=== PATIENT | female | born 1945 | race Caucasian/White ===

== ENCOUNTER 2017-11-12 09:22 | Emergency (ER) | payer MEDICARE, OTHER ==
[~2017-11-12] VITALS: Ht 157.5 cm; Wt 90.5 kg
[2017-11-12 09:23] VITALS: BP 151/67; PULSE 71; RESP 16; TEMP 98.6; O2SAT 96
[2017-11-12] MEDS ORDERED: ALPR0.5T3 PO (09:40)
[2017-11-12] MEDS ORDERED: IRBE150T15 PO (09:40)
[2017-11-12] MEDS ORDERED: RABE1TAB PO (09:40)
[2017-11-12] MEDS ORDERED: METO1TAB9 PO (09:40)
[2017-11-12] MEDS ORDERED: EZET10 PO (09:40)
--- NOTE | 2017-11-12 10:48 | PD ---
HPI Chief Complaint: Pain: Acute or Chronic Time Seen by Provider: 10:29 Travel History International Travel<30 days: No Contact w/Intl Traveler<30days: No Traveled to known affect area: No History of Present Illness HPI 72-year-old female complains of right breast pain. Patient states that the pain started this morning. Patient states the pain is sharp pain localized to the right breast. Patient denies any pain radiation. Patient states the pain is worse with deep breathing. Patient denies any coughing congestion fever chills. Patient denies any injury. PFSH Past Medical History Anxiety: Yes High Cholesterol: Yes GERD: Yes Hypertension: Yes Sleep Apnea: Yes (cpap) Influenza Vaccination: Yes Past Surgical History Cholecystectomy: Yes Hysterectomy: Yes (ovaries still in place) Other Surgery: Yes (double bunion) Social History Alcohol Use: No Tobacco Use: No Substance Use: No Allergies-Medications (Allergen,Severity, Reaction): Coded Allergies: amoxicillin (Verified Allergy, Severe, hives, 11/12/17) clavulanic acid (Verified Allergy, Severe, hives, 11/12/17) levofloxacin (Verified Allergy, Mild, rash, 11/12/17) metronidazole (Verified Allergy, Mild, rash, 11/12/17) Reported Meds & Prescriptions Reported Meds & Active Scripts Active Reported Rabeprazole (Rabeprazole Sodium) 20 Mg Tab 20 Mg PO DAILY Metoprolol Succinate ER 24 HR (Metoprolol Succinate) 50 Mg Tab 50 Mg PO DAILY Irbesartan 150 Mg Tab 150 Mg PO DAILY Zetia (Ezetimibe) 10 Mg Tab 10 Mg PO DAILY Alprazolam 0.5 Mg Tab 0.5 Mg PO HS Review of Systems General / Constitutional: No: Fever Eyes: No: Visual changes HENT: No: Headaches Cardiovascular: No: Chest Pain or Discomfort Respiratory: No: Shortness of Breath Gastrointestinal: No: Abdominal Pain Genitourinary: No: Dysuria Musculoskeletal: No: Pain Skin: No Rash Neurologic: No: Weakness Psychiatric: No: Depression Endocrine: No: Polydipsia Hematologic/Lymphatic: No: Easy Bruising Physical Exam Narrative GENERAL: Well-nourished, well-developed patient. SKIN: Focused skin assessment warm/dry. HEAD: Normocephalic. EYES: No scleral icterus. No injection or drainage. NECK: Supple, trachea midline. No JVD or lymphadenopathy. CARDIOVASCULAR: Regular rate and rhythm without murmurs, gallops, or rubs. RESPIRATORY: Breath sounds equal bilaterally. No accessory muscle use. GASTROINTESTINAL: Abdomen soft, non-tender, nondistended. MUSCULOSKELETAL: No cyanosis, or edema. BACK: Nontender without obvious deformity. No CVA tenderness. Examination of the right breast diffuse fibrocystic structure on the right breast with tenderness on palpation. No redness no heat no skin dimpling noted. No discharge from the nipple. No dominant masses noted. No tenderness on palpation chest wall. No crepitus no deformity noted of the chest wall. Data Data Last Documented VS Vital Signs Date Time Temp Pulse Resp B/P (MAP) Pulse Ox O2 Delivery O2 Flow Rate FiO2 11/12/17 09:23 98.6 71 16 151/67 (95) 96 Room Air Orders Orders Chest, Single Ap (11/12/17 10:37) Electrocardiogram (11/12/17 ) Acetamin-Hydrocod 325-5 Mg ([place] 5-325 (11/12/17 13:00) [facility] Medical Decision Making Medical Screen Exam Complete: Yes Emergency Medical Condition: Yes Interpretation(s) Data Last Impressions Chest X-Ray 11/12/17 1037 Signed Impressions: Service Date/Time: Sunday, November 12, 2017 10:42 - CONCLUSION: 1. Mild right lower lung zone airspace disease which may reflect atelectasis. However, pneumonia or aspiration cannot be excluded in the appropriate clinical setting. Reji Cash MD Differential Diagnosis Differential diagnosis including mastitis, mastalgia, chest wall pain, pneumothorax, PE. Narrative Course 72-year-old female right breast pain. The pain started this morning. Diagnosis Primary Impression: Mastalgia Patient Instructions: General Instructions Additional Instructions: Ibuprofen for pain. Follow-up with general surgeon. Return if worse. Med/Other Pt SpecificInfo: Prescription(s) given Scripts Ibuprofen (Ibuprofen) 600 Mg Tab 600 MG PO TID for Pain, #30 TAB 0 Refills Prov: Wing Herrera MD 11/12/17 Methocarbamol (Robaxin) 750 Mg Tab 750 MG PO QID for Muscle Spasm, #40 TAB 0 Refills Prov: Wing Herrera MD 11/12/17 Disposition: 01 DISCHARGE HOME Condition: Stable Wing Herrera MD Nov 12, 2017 10:48
--- NOTE | 2017-11-12 10:55 | RADRPT ---
EXAM DATE/TIME: 11/12/2017 10:42 [facility] COMPARISON: No previous studies available for comparison. INDICATIONS : Right chest pain today. MEDICAL HISTORY : heart murmur SURGICAL HISTORY : None. ENCOUNTER: Initial ACUITY: 1 day PAIN SCORE: 8/10 LOCATION: Right chest FINDINGS: Mild right lower lung zone airspace consolidation. Cardiomediastinal contours are within normal limit s. Bony thorax is intact. CONCLUSION: 1. Mild right lower lung zone airspace disease which may reflect atelectasis. However, pneumonia or a spiration cannot be excluded in the appropriate clinical setting. Reji Cash MD on November 12, 2017 at 10:50 Board Certified Radiologist. This report was verified electronically.
[2017-11-12] MEDS ORDERED: ACETAMINOPHEN/HYDROcodone 325 MG/5 MG TAB PO ONE (13:00)
[2017-11-12] MEDS ORDERED: ROBA750T PO (13:48)
[2017-11-12] MEDS ORDERED: IBUP-232 PO (13:48)
--- NOTE | 2017-11-12 14:05 | EKG ---
Date Performed: 11/12/2017 Time Performed: 09:36:28 PTAGE: 72 years EKG: Baseline artifact present Sinus rhythm NORMAL ECG NO PREVIOUS TRACING DOCTOR: Dago Watts Interpretating Date/Time 11/12/2017 14:03:18
[2017-11-12 14:07] VITALS: BP 142/64; PULSE 66; RESP 18; O2SAT 100
== END 2017-11-12 14:19 | disposition home or self-care (01) ==
LOC: NEPC 09:22
DX: N64.4 Mastodynia (principal); E78.00 Pure hypercholesterolemia, unspecified; I10 Essential (primary) hypertension
CPT/HCPCS: 71045; 93005; 99284